=== PATIENT | female | born 1980 | race African-American/Black ===

== ENCOUNTER 2016-08-25 17:30 | Emergency (ER) | payer OTHER ==
[2016-08-25 17:36] VITALS: BMI 41.5
--- NOTE | 2016-08-25 17:37 | PDOC ---
Rapid Medical Evaluation Chief Complaint: Edema Time Seen by Provider: 08/25/16 17:33 Medical Evaluation: Allergies Allergy/AdvReac Type Severity Reaction Status Date / Time No Known Allergies Allergy Verified 08/25/16 17:32 08/25/16 17:33 I have performed a brief in-person evaluation of this patient. The patient presents with a chief complaint of: B/l lower extremity x 2 weeks. H /o asthma, obesity, s/p tubal ligation 3 years ago Pertinent physical exam findings: edema w/ ttp to b/l foot/ankle I have ordered the following:cbc/chem/ua The patient will proceed to the ED for further evaluation. 08/25/16 17:38 08/25/16 17:38
[2016-08-25 18:35] LABS: URINE APPEARANCE CLEAR; URINE BILIRUBIN NEGATIVE (NEGATIVE); URINE BLOOD NEGATIVE (NEGATIVE); URINE COLOR YELLOW; URINE GLUCOSE (UA) NEGATIVE (NEGATIVE); URINE KETONE TRACE (NEGATIVE); URINE LEUK ESTERASE NEGATIVE (NEGATIVE); URINE NITRITE NEGATIVE (NEGATIVE); URINE PROTEIN NEGATIVE (NEGATIVE); URINE UROBILINOGEN 2.0 E.U/dl E.U./dl (0.2-1.0)
[2016-08-25 19:00] LABS: ALBUMIN 3.1 g/dl (3.4-5.0); ALK PHOS 109 U/L (45-117); ANION GAP 6 (8-16); BILIRUBIN,TOTAL 0.4 mg/dL (0.2-1.0); CALCIUM 8.5 mg/dL (8.5-10.1); CO2 27 mmol/L (21-32); GLUCOSE,RANDOM 104 mg/dL (74-106); SGOT/AST 16 U/L (15-37); SGPT/ALT 16 U/L (12-78); TOT PROT 6.7 g/dl (6.4-8.2)
[2016-08-25 20:10] LABS: EOSINOPHIL 6.5 % (0-4.5); MCH 20.4 pg (25.7-33.7); MCHC 29.6 g/dl (32.0-36.0); MEAN PLT VOLUME 7.6 fl (7.5-11.1); NEUTROPHILS 39.5 % (42.8-82.8); PLATELET COUNT 407 K/MM3 (134-434); RDW 19.5 % (11.6-15.6); WHITE BLOOD COUNT 4.5 K/mm3 (4.0-10.0)
--- NOTE | 2016-08-25 21:45 | PDOC ---
History of Present Illness - General Chief Complaint: Edema Stated Complaint: SWOLLEN FEET Time Seen by Provider: 08/25/16 17:33 History Source: Patient Exam Limitations: No Limitations - History of Present Illness Initial Comments: 08/25/16 21:40 35yo Female patient w/ PmHx: Asthma presents to ED c/o bilateral feet swelling. Patient states she noticed symptoms after having her feet done. She thought it would go away, but symptoms worsened over a week. She reports numbness/tingling while lying in bed. Patient reports no hx: of foot swelling. She reports eating a lot of take out foods recently. She denies any other complaints at this time. LNMP: 1 week ago. Occurred: reports: other (2 weeks.) Severity: Yes: severe Method of Injury: No: unknown, assault, burn, direct blow, fell, incised, motor vehicle accident, sports injury, twisted, other Modifying Factors: worse with: None, cold therapy, immobilization, pain medication, rest, other Associated Symptoms: See HPI Lower Ext. Injury Location - Specific Injury Location Ankle: bilateral no evidence of injury, bilateral normal range of motion, bilateral swelling Foot: bilateral foot no evidence of injury, bilateral foot normal range of motion, bilateral foot swelling Past History - Travel Traveled outside of the country in the last 30 days: No Close contact w/someone who was outside of country & ill: No - Past Medical History Allergies/Adverse Reactions: Allergies Allergy/AdvReac Type Severity Reaction Status Date / Time No Known Allergies Allergy Verified 08/25/16 20:25 Home Medications: Ambulatory Orders Furosemide [Lasix] 20 mg PO DAILY PRN #20 tablet 08/25/16 Asthma: Yes (last attack >1yr) Cancer: No Cardiac Disorders: No Diabetes: No HTN: No Seizures: No Thyroid Disease: No - Surgical History Abdominal Surgery: Yes (GASTRIC BYPASS) - Immunization History Immunization Up to Date: Yes - Psycho/Social/Smoking Cessation Hx Anxiety: No Suicidal Ideation: No Smoking Status: No Smoking History: Never smoked Have you smoked in the past 12 months: No Number of Cigarettes Smoked Daily: 0 Information on smoking cessation initiated: No Hx Alcohol Use: No Drug/Substance Use Hx: No Substance Use Type: None Hx Substance Use Treatment: No Review of Systems - Review of Systems Able to Perform ROS?: Yes Is the patient limited Portuguese proficient: No Constitutional: No: Chills, Fever Musculoskeletal: No: Joint Pain, Joint Swelling, Joint Stiffness Integumentary: Yes: Other (Feet Swelling) All Other Systems: Reviewed and Negative *Physical Exam - Vital Signs Last Vital Signs Temp Pulse Resp BP Pulse Ox 97.9 F 90 18 121/45 100 08/25/16 17:33 08/25/16 17:33 08/25/16 17:33 08/25/16 17:33 08/25/16 19:40 - Physical Exam General Appearance: Yes: Nourished, Appropriately Dressed. No: Apparent Distress, Mild Distress, Moderate Distress, Severe Distress Neck: positive: Trachea midline, Normal Thyroid, Supple. negative: Tender, Rigid, Decreased range of motion, Stridor, Lymphadenopathy (R), Lymphadenopathy (L) Respiratory/Chest: positive: Lungs Clear, Normal Breath Sounds. negative: Chest Tender, Respiratory Distress, Accessory Muscle Use, Labored Respiration, Rapid RR Cardiovascular: positive: Regular Rhythm, Regular Rate Gastrointestinal/Abdominal: positive: Normal Bowel Sounds, Soft. negative: Tender, Distended, Guarding, Rebound, Tenderness Musculoskeletal: positive: Normal Inspection. negative: CVA Tenderness Extremity: positive: Normal Capillary Refill, Normal Range of Motion, Pedal Edema, Swelling. negative: Calf Tenderness, Erythema, Inflammation Integumentary: positive: Normal Color, Dry, Warm, Swelling. negative: Erythema , Moist, Hives, Rash Neurologic: positive: special needs babysitter II-XII NML intact, Fully Oriented, Alert, Normal Mood/ Affect, Normal Response, Motor Strength 5/5 ED Treatment Course - LABORATORY CBC & Chemistry Diagram: 08/25/16 18:00 08/25/16 18:00 - ADDITIONAL ORDERS Additional order review: Laboratory Results 08/25/16 08/25/16 08/25/16 18:00 18:00 18:00 Sodium 142 Potassium 4.1 Chloride 109 H Carbon Dioxide 27 Anion Gap 6 L BUN 12 D Creatinine 1.0 D Creat Clearance w eGFR > 60 Random Glucose 104 D Calcium 8.5 Total Bilirubin 0.4 D AST 16 D ALT 16 D Alkaline Phosphatase 109 D Total Protein 6.7 Albumin 3.1 L D Urine Color Yellow Urine Appearance Clear Urine pH 5.0 Urine Protein Negative Urine Glucose (UA) Negative Urine Ketones Trace H Urine Blood Negative Urine Nitrite Negative Urine Bilirubin Negative Urine Urobilinogen 2.0 e.u/dl H Ur Leukocyte Esterase Negative Urine HCG, Qual Negative 08/25/16 18:00 RBC 3.80 D MCV 69.0 L D MCHC 29.6 L RDW 19.5 H D MPV 7.6 Neutrophils % 39.5 L D Lymphocytes % 50.0 H D Monocytes % 4.0 Eosinophils % 6.5 H Basophils % 0.0 - RADIOLOGY Radiology Studies Ordered: Category Date Time Status DUPLEX VASCUL US-2LEGS [US] Stat Ultrasound 08/25/16 19:54 Completed *DC/Admit/Observation/Transfer Diagnosis at time of Disposition: Bilateral swelling of feet and ankles - Discharge Dispostion Disposition: HOME Condition at time of disposition: Stable Admit: No - Prescriptions Prescriptions: Furosemide [Lasix] 20 mg PO DAILY PRN #20 tablet PRN Reason: Swelling of feet - Patient Instructions Printed Discharge Instructions: DI for Peripheral Edema -- Bilateral Additional Instructions: FOLLOW UP WITH DR. RAPHAEL (PCP) FOR FURTHER EVALUATION. CALL TO SCHEDULE YOUR APPOINTMENT FOR LATER THIS WEEK OR EARLY NEXT WEEK. AVOID SALTY FOODS. INCREASE FLUIDS WHILE TAKING LASIX. ONLY TAKE LASIX IN MORNING AFTER AWAKING, YOU WILL BE USING BATHROOM FREQUENTLY. EAT 1-2 BANANAS DAILY. RETURN IF SYMPTOMS WORSEN OR ANY CONCERNS FOR FURTHER EVALUATION. ELEVATE LEGS WHILE RESTING TO LEVEL OF HEART. AVOID PROLONGED STANDING. Print Language: ROMANIAN - Post Discharge Activity Work/School Note: Back to Work
[2016-08-25 21:50] LABS: ANISOCYTOSIS 1+; HYPOCHROMIA 3+; MICROCYTOSIS 1+
[2016-08-25] MEDS ORDERED: FUROSEMIDE 20 MG TABLET (FP) PO ONE (22:06)
--- NOTE | 2016-08-25 22:21 | PDOC ---
*Physical Exam - Vital Signs Last Vital Signs Temp Pulse Resp BP Pulse Ox 97.9 F 90 18 121/45 100 08/25/16 17:33 08/25/16 17:33 08/25/16 17:33 08/25/16 17:33 08/25/16 19:40 ED Treatment Course - LABORATORY CBC & Chemistry Diagram: 08/25/16 18:00 08/25/16 18:00 - ADDITIONAL ORDERS Additional order review: Laboratory Results 08/25/16 08/25/16 08/25/16 18:00 18:00 18:00 Sodium 142 Potassium 4.1 Chloride 109 H Carbon Dioxide 27 Anion Gap 6 L BUN 12 D Creatinine 1.0 D Creat Clearance w eGFR > 60 Random Glucose 104 D Calcium 8.5 Total Bilirubin 0.4 D AST 16 D ALT 16 D Alkaline Phosphatase 109 D Total Protein 6.7 Albumin 3.1 L D Urine Color Yellow Urine Appearance Clear Urine pH 5.0 Urine Protein Negative Urine Glucose (UA) Negative Urine Ketones Trace H Urine Blood Negative Urine Nitrite Negative Urine Bilirubin Negative Urine Urobilinogen 2.0 e.u/dl H Ur Leukocyte Esterase Negative Urine HCG, Qual Negative 08/25/16 18:00 RBC 3.80 D MCV 69.0 L D MCHC 29.6 L RDW 19.5 H D MPV 7.6 Neutrophils % 39.5 L D Lymphocytes % 50.0 H D Monocytes % 4.0 Eosinophils % 6.5 H Basophils % 0.0 Medical Decision Making - Medical Decision Making 08/25/16 22:20 agree with care from CARLY Siu *DC/Admit/Observation/Transfer Diagnosis at time of Disposition: Bilateral swelling of feet and ankles - Prescriptions Prescriptions: Furosemide [Lasix] 20 mg PO DAILY PRN #20 tablet PRN Reason: Swelling of feet - Referrals Referrals: Leslie Isidro [Primary Care Provider] - - Patient Instructions Printed Discharge Instructions: DI for Peripheral Edema -- Bilateral Additional Instructions: FOLLOW UP WITH DR. ISIDRO (PCP) FOR FURTHER EVALUATION. CALL TO SCHEDULE YOUR APPOINTMENT FOR LATER THIS WEEK OR EARLY NEXT WEEK. AVOID SALTY FOODS. INCREASE FLUIDS WHILE TAKING LASIX. ONLY TAKE LASIX IN MORNING AFTER AWAKING, YOU WILL BE USING BATHROOM FREQUENTLY. EAT 1-2 BANANAS DAILY. RETURN IF SYMPTOMS WORSEN OR ANY CONCERNS FOR FURTHER EVALUATION. ELEVATE LEGS WHILE RESTING TO LEVEL OF HEART. AVOID PROLONGED STANDING. Print Language: MOHAWK - Post Discharge Activity Work/School Note: Back to Work
[2016-08-25] MEDS ORDERED: FUROSEMIDE 40 MG TABLET (FP) ONE (22:49)
[2016-08-25 22:58] VITALS: BP 124/53; PULSE 87; TEMP 98
== END 2016-08-25 22:58 | disposition home or self-care (01) ==
LOC: JER 17:30
DX: R60.0 Localized edema (principal)
CPT/HCPCS: 36415; 80053; 81003; 84703; 85025; 93970-TC; 99282-25

== ENCOUNTER 2019-11-09 04:46 | Day surgery (SDC) | payer OTHER ==
[2019-11-08 11:50] VITALS: BMI 45.1
[2019-11-09] MEDS ORDERED: CEFAZOLIN 2 GM/D5W 2 GM/50 ML ML IVPB ONE (07:00)
[2019-11-09] MEDS ORDERED: ceFAZolin SODIUM 1 GM VIAL ONE (08:24)
[2019-11-09 09:12] LABS: HEMATOCRIT 36.9 % (32.4-45.2); HEMOGLOBIN 12.1 GM/dL (10.7-15.3); MCH 28.9 pg (25.7-33.7); MCHC 32.7 g/dl (32.0-36.0); MEAN CELL VOLUME 88.4 fl (80-96); MEAN PLT VOLUME 8.4 fl (7.5-11.1); PLATELET COUNT 325 K/MM3 (134-434); RBC 4.17 M/mm3 (3.60-5.2); RDW 17.1 % (11.6-15.6); WHITE BLOOD COUNT 5.3 K/mm3 (4.0-10.0)
[2019-11-09 10:07] LABS: BILIRUBIN,TOTAL 0.4 mg/dL (0.2-1); BLOOD UREA NITROGEN 15.3 mg/dL (7-18); CALCIUM 8.6 mg/dL (8.5-10.1); CREATININE 0.9 mg/dL (0.55-1.3); POTASSIUM 3.7 mmol/L (3.5-5.1); TOT PROT 6.6 g/dl (6.4-8.2)
[2019-11-09] MEDS ORDERED: MIDAZOLAM HCL 2 MG/2 ML SINGLE DOSE VIAL ONE ×2 (10:29)
[2019-11-09] MEDS ORDERED: BUPIVACAINE LIPOSOME/PF (EXPAREL) 266 MG/20 ML VIAL ONE (10:33)
[2019-11-09] MEDS ORDERED: BUPIVACAINE HCL/PF 0.25% (2.5MG/ML) 10 ML VIAL ONE (10:34)
[2019-11-09] MEDS ORDERED: ROCURONIUM BROMIDE 50 MG/5 ML SYRINGE ONE ×2 (10:53→12:23)
[2019-11-09] MEDS ORDERED: fentaNYL CITRATE 250 MCG/5 ML VIAL ONE (10:53)
[2019-11-09] MEDS ORDERED: ceFAZolin SODIUM 1 GM VIAL IVPB ONE (11:40)
[2019-11-09] MEDS ORDERED: [UNRECOGNIZED DRUG - OTHER] NR ONE (11:50)
[2019-11-09] MEDS ORDERED: PROPOFOL 20 ML ONE (13:37)
[2019-11-09] MEDS ORDERED: NEOSTIGMINE METHYLSULFATE 0.5 MG/ML - 10 ML MDV ONE (14:28)
--- NOTE | 2019-11-09 15:05 | OP ---
<Niyah Smith - Last Filed: 11/09/19 15:01> Operative Note - Note: Operative Date: 11/09/19 Pre-Operative Diagnosis: dysmenorrhea Operation: robotic assisted hysterctomy with lysis of adhesion, right salpingectomy Surgeon: Carlitos Hugo Slab Polisher: Niyah Smith Anesthesiologist/DIE REPAIRER STAMPING: Ro Canales Anesthesia: General Specimens Removed: hysterctomy, right fallopian tube Estimated Blood Loss (mls): 50 Drains, Volume Out (mls): 400 (francois) Fluid Volume Replaced (mls): 2,000 Operative Report Dictated: Yes <Carlitos Hugo - Last Filed: 11/09/19 16:54> Operative Note - Note: Operation: cystoscopy
[2019-11-09] MEDS ORDERED: ONDANSETRON 4 MG/2 ML VIAL IVPUSH PRN (15:11)
[2019-11-09] MEDS ORDERED: SIMETHICONE 80 MG TAB.CHEW (FP) PO PRN (15:11)
[2019-11-09] MEDS ORDERED: oxyCODONE HCL 5 MG TABLET PO PRN (15:11)
[2019-11-09] MEDS ORDERED: DOCUSATE SODIUM 100 MG CAPSULE (FP) PO PRN (15:11)
--- NOTE | 2019-11-09 15:23 | SURG ---
Surgery Data Processing Control Clerk Note Data Processing Control Clerk: Niyah Smith PA-C Date of Service: 11/09/19 Diagnosis: dysmenorrhea Procedure: robotic assisted hysterectomy with lysis of adhesion, right salpingectomy I was present for the entirety of the operative procedure. For further detail, please refer to operative report. Visit type - Case Type Case Type: Scheduled - Emergency Emergency Visit: No - New patient This patient is new to me today: Yes Date on this admission: 11/09/19
[2019-11-09] MEDS: ACETAMINOPHEN 1000 MG/100 ML VIAL (NON FORMULARY) IVPB SCH (17:00)
[2019-11-09] MEDS ORDERED: ACETAMINOPHEN INJECTION 100 ML IVPB ONE (17:05)
[2019-11-09] MEDS: LACTATED RINGERS SOLUTION 1,000 ML/1,000 ML INFUS.BAG IV SCH (17:15)
[2019-11-09] MEDS ORDERED: LACTATED RINGERS SOLUTION 1,000 ML IV SCH (17:15)
[2019-11-09] MEDS: IBUPROFEN 800 MG/8 ML IJ IVPB SCH ×2 (18:58→22:14)
--- NOTE | 2019-11-09 19:12 | OP ---
DATE OF OPERATION: 11/09/2019 PREOPERATIVE DIAGNOSIS: 1. Enlarged uterus, possible uterine leiomyomata. 2. Severe pelvic pain, especially on the left side. 3. Menorrhagia with iron-deficiency anemia. ADDITIONAL DIAGNOSIS AND COMPLICATING FACTORS: 1. Morbid obesity. 2. Previous section x4 and bariatric surgery; expecting adhesions. POSTOPERATIVE DIAGNOSIS: 1. Enlarged uterus, possible uterine leiomyomata. 2. Severe pelvic pain, especially on the left side. 3. Menorrhagia with iron-deficiency anemia. 4. Morbid obesity. 5. Previous section x4 and bariatric surgery; expecting adhesions. OPERATION: 1. Total robotic hysterectomy with left salpingooophorectomy. 2. Lysis of extensive adhesions. 3. Division of left infundibulopelvic ligament. 4. Cystoscopy. SURGEON: Anita Melton MD. SALES DEVELOPMENT DIRECTOR: ENDER Horton. ANESTHESIA: General and TAP block. ANESTHESIOLOGIST: Ro Canales MD. PROCEDURE AND FINDINGS: The patient was placed on the operating table in dorsal supine position and general anesthesia was instituted. TAP block was given previously. Patient was prepped and draped in the normal fashion. Pelvic examination was carried out with great difficulties due to tightness of the vagina. Only with extra long speculum, cervix was visualized and brought somewhat down. It was dilated with difficulty and small VCare device was placed in the catheter. Bladder was catheterized with Ramirez catheter. Following abdominal prep and drape, patient was set up for Da Charly laparoscopy. Scars from bariatric surgery and from 4 C-sections were noted. Intraumbilical incision was made, and Veress needle was inserted vertically into the peritoneal cavity. Pneumoperitoneum was accomplished using 4-1/2 L of carbon dioxide. Da Charly trocar was then placed in the abdominal cavity with straight down vertical insertion. Scope was introduced and pelvis was examined. Under direct vision, two 8-mm lateral ports were placed and AirSeal 5-mm trocar was placed on the left side at the umbilical level in the midclavicular line. Patient was placed in steep Trendelenburg and robot was docked. Bipolar fenestrating device was placed in arm number 1, and Vessel Sealer in arm number 4. Arm number 3 was not used. Findings were as follows: Uterus was enlarged and irregular, compatible with 8 to 10 weeks of gestation. Right fallopian tube and right ovary were completely within normal limits with corpus luteum noticed on the ovary. Anterior adhesions between bladder and anterior uterine wall were thick, extensive, and cemented with scar tissue. They extended superiorly almost to the uterine fundus. Left ovary was buried with the adhesions and was attached to the posterior aspect of the uterus, left broad ligament and to each other. It was fixed in place with both solid and filmy adhesions. Initially, left ovary was not visualized. Left fallopian tube was noted to be distorted, damaged, and essentially nonexistent. Right-sided dissection was carried out. Right mesosalpinx was divided. Round ligament was opened, and right uteroovarian ligament was divided. Broad ligament was opened and bluntly dissected. Ureter was noted to be away from the operating field. Immediate to the right part of the bladder flap was opened, but at that point uterine vessel was skeletonized, coagulated, and divided. Subsequently, very thorough and painstaking division of scar tissue was carried out to free the bladder of the anterior uterus. It was carried out primarily by sharp dissection with bipolar coagulation employing Vessel Sealer. All adhesions were divided and anterior wall of the uterus was freed. Some of the uterine tissue may have stayed on the bladder, which is okay. After most of the scar tissue was divided, bladder was dissected off the cervix inferior to the rim of the thecal device. Urine was checked repeatedly during the dissection and remained clear. Left side was much more complicated. Left round ligament was opened, and pelvic sidewall was dissected. Bladder flap was connected. Most film adhesions were divided sharply without energy and most of the bladder loops were allowed to drop back free in the uterus. Ovary was completely embedded in the loop of colon and dissection was fraught with high risk of injury to the bowel. At that point, decision was made to separate the ovary from the uterus and address this issue after completing the hysterectomy. Further goal, uteroovarian ligament was isolated, and freed. It was divided and, as the next step, left uteroovarian ligament was divided as well. Loops of bowel were completely freed from the uterus. Left uterine plexus was noted, coagulated and divided. Loose tissue was cleared, and access to the VCare device rim was opened per 360 degrees. Vessel Sealer was removed from the abdomen and replaced with monopolar scissors. Vaginal fornix was entered anteriorly, and edge of rim was noted. Incision was carried all around for 360 degrees and uterus was freed. It was removed transvaginally with some difficulty but in 1 piece. Search for left ovary was carried out, but it was very difficult to address it. Because of very firm adhesions and scar tissue between ovary and intestine, decision was made not to pursue the goal of dissecting and removing it. Other than increased risk of bowel injury, there were 2 factors that influenced this decision. Firstly, patient pain in the left side will be relieved with complete dissection of the bowel and freeing the left side. Anatomy was restored and had no resemblance to the initial intraoperative findings. Secondly, with complete interruption of infundibulopelvic ligament and left uteroovarian ligament, the ovary will most likely atrophy and be reabsorbed. It is unlikely the patient will ever ovulate on the left side which in the past must have caused all this pain. Right ovary was completely within normal limits, left in place, and patient will have no interruption of overall function. After proper evaluation and arriving at this decision, pelvis was lavaged, and hemostasis was attended to. It was noted to be excellent. Megaholder was placed, replacing monopolar scissors, and 2-0 V-Loc was used to close the vaginal vault. It was closed with securing the angles with 1 continuous suture which was then returned for the 2nd layer of closure. Needle was removed from the abdomen. Another lavage was then carried out, and fluid was suctioned. The strip of Surgicel was placed in the raw area. At that point, robotic part of the surgery was completed. Robot was undocked. All ports and instruments were removed under direct vision, and carbon dioxide was suctioned from the abdomen using AirSeal system. Incisions were closed with interrupted 3-0 Biosyn sutures. Dressings were used employing Dermabond. Cystoscopy was then carried out to assess integrity of the ureters, especially the left one. Ramirez catheter was removed. Using suction irrigation device, blader was entered and filled with 200 mL of same. Laparoscope with 30-degree angle and 5-mm diameter was then introduced into the bladder. Trigone and bladder dome were noted to be completely intact. Urethra was normal as well. Both ureteral orifices were noted and jets of yellow urine were noted coming out freely from both of them. This was reassuring and cystoscopy was completed. Fresh Ramirez catheter was inserted into the bladder. Patient withstood the surgery well. In spite of multiple, rather significant surgical difficulties, procedure was accomplished without any complications. Blood loss was about 50 mL or less. There was no anesthesia complication, either. Patient withstood the procedure very well. She was awakened and transferred to PACU stable and comfortable. ANITA MELTON MD [id number] MTDD
[2019-11-09] MEDS: CEFAZOLIN 2 GM/D5W 2 GM/50 ML ML IVPB SCH (19:57)
[2019-11-09] MEDS ORDERED: CEFAZOLIN 2 GM in DEXTROSE 5%-WATER - 100 ML IVPB SCH (20:00)
[2019-11-10] MEDS: ACETAMINOPHEN 1000 MG/100 ML VIAL (NON FORMULARY) IVPB SCH ×2 (01:29→06:43)
[2019-11-10] MEDS: CEFAZOLIN 2 GM/D5W 2 GM/50 ML ML IVPB SCH (02:43)
[2019-11-10] MEDS: LACTATED RINGERS SOLUTION 1,000 ML/1,000 ML INFUS.BAG IV SCH (05:32)
[2019-11-10] MEDS ORDERED: ACETAMINOPHEN 325 MG TABLET (FP) PO PRN (07:59)
[2019-11-10] MEDS ORDERED: IBUPROFEN 400 MG TABLET (FP) PO PRN (08:00)
--- NOTE | 2019-11-10 08:08 | DS ---
Physical Exam: SUBJECTIVE: Patient seen and examined this am. She has no nasuea or emesis. No flatus or BM. Tolerated a regular diet. OOB and ambulated. Francois removed and voiding. Scant vaginal bleeding. OBJECTIVE: Vital Signs Temperature 98.6 F 11/10/19 06:00 Pulse Rate 75 11/10/19 06:00 Respiratory Rate 18 11/10/19 06:00 Blood Pressure 103/59 L 11/10/19 06:00 O2 Sat by Pulse Oximetry (%) 100 11/10/19 06:00 PHYSICAL EXAM GENERAL: The patient is awake, alert, and fully oriented, in no acute distress. ABDOMEN: Soft, nondistended, Inc tenderness. Inc c/d/i EXTREMITIES: no edema or swelling. No tenderness to LE b/l LABS CBC,CMP WBC 5.3 K/mm3 (4.0-10.0) 11/09/19 08:11 RBC 4.17 M/mm3 (3.60-5.2) 11/09/19 08:11 Hgb 12.1 GM/dL (10.7-15.3) 11/09/19 08:11 Hct 36.9 % (32.4-45.2) 11/09/19 08:11 MCV 88.4 fl (80-96) 11/09/19 08:11 MCH 28.9 pg (25.7-33.7) 11/09/19 08:11 MCHC 32.7 g/dl (32.0-36.0) 11/09/19 08:11 RDW 17.1 % (11.6-15.6) H 11/09/19 08:11 Plt Count 325 K/MM3 (134-434) 11/09/19 08:11 MPV 8.4 fl (7.5-11.1) 11/09/19 08:11 Sodium 143 mmol/L (136-145) 11/09/19 08:11 Potassium 3.7 mmol/L (3.5-5.1) 11/09/19 08:11 Chloride 110 mmol/L (98-107) H 11/09/19 08:11 Carbon Dioxide 27 mmol/L (21-32) 11/09/19 08:11 Anion Gap 6 MMOL/L (8-16) L 11/09/19 08:11 BUN 15.3 mg/dL (7-18) 11/09/19 08:11 Creatinine 0.9 mg/dL (0.55-1.3) 11/09/19 08:11 Est GFR (CKD-EPI)AfAm 92.70 11/09/19 08:11 Est GFR (CKD-EPI)NonAf 79.98 11/09/19 08:11 Random Glucose 90 mg/dL (74-106) 11/09/19 08:11 Calcium 8.6 mg/dL (8.5-10.1) 11/09/19 08:11 Total Bilirubin 0.4 mg/dL (0.2-1) 11/09/19 08:11 AST 13 U/L (15-37) L 11/09/19 08:11 ALT 16 U/L (13-61) 11/09/19 08:11 Alkaline Phosphatase 87 U/L (45-117) 11/09/19 08:11 Total Protein 6.6 g/dl (6.4-8.2) 11/09/19 08:11 Albumin 3.0 g/dl (3.4-5.0) L 11/09/19 08:11 Serum , Qual Negative 11/09/19 08:11 HOSPITAL COURSE: The patient was admitted to the Med-Surg Unit s/p robotic assisted abdominal hysterectomy. Pain management was achieved with a narcotic and non-narcotic oral and IV regimen. POD #1, the patients francois was removed and she voided. She tolerated a regular diet on the day of discharge. Hemoglobin and hematocrit were monitored as well as vitals and remained stable throughout admission. Anna-operative IV ABX were administered. DVT prophylaxis was achieved with Lovenox 40mg qd, SCDs and early ambulation. The patient ambulated the halls without issue. Narcotic scripts were checked with [place] [employer]RIVAL ATTENDANT prior to escribe. The discharge instructions and an oral pain management plan were reviewed with the patient. All questions answered. Above plan discussed with Dr. Dorado and agreed. Date of Admission:11/09/19 Date of Discharge: 11/10/19 Minutes to complete discharge: 30
[2019-11-10] MEDS ORDERED: CITRIC ACID/SODIUM CITRATE 30 ML UNIT-DOSE CUP PO ONE (08:41)
--- NOTE | 2019-11-10 08:43 | PN ---
Progress Note (short form) - Note Progress Note: VSS. Pt. is doing well. Raedy to go home. Passing gas. Some reflux. Bicitra. All [id number]. Discharge.
[2019-11-10 09:12] LABS: HEMATOCRIT 35.1 % (32.4-45.2); HEMOGLOBIN 11.3 GM/dL (10.7-15.3); MCH 28.6 pg (25.7-33.7); MCHC 32.1 g/dl (32.0-36.0); MEAN CELL VOLUME 89.1 fl (80-96); MEAN PLT VOLUME 8.3 fl (7.5-11.1); PLATELET COUNT 274 K/MM3 (134-434); RBC 3.94 M/mm3 (3.60-5.2); RDW 17.4 % (11.6-15.6); WHITE BLOOD COUNT 7.5 K/mm3 (4.0-10.0)
[2019-11-10 09:46] LABS: CALCIUM 8.8 mg/dL (8.5-10.1); POTASSIUM 4.1 mmol/L (3.5-5.1)
[2019-11-10 09:49] LABS: BLOOD UREA NITROGEN 10.4 mg/dL (7-18); CREATININE 0.7 mg/dL (0.55-1.3)
[2019-11-10] MEDS ORDERED: ENOXAPARIN NA (PORCINE) 40 MG/0.4 ML DISP.SYRIN SQ SCH (10:00)
[2019-11-10 14:24] VITALS: BP 140/70; PULSE 78; TEMP 98.8
--- NOTE | 2019-11-17 15:24 | PATH ---
Surgical Pathology Report Patient Name: RYLIE NEWMAN [facility]. Rec. #: [id number] /Age/Gender: 1980 (Age: 39) / F Account: [id number] Location: AMBULATORY SURG Taken: 11/09/2019 Received: 11/10/2019 Reported: 11/17/2019 Physicians: Carlitos Hugo MD Specimen(s) Received UTERUS, CERVIX, RIGHT FALLOPIAN TUBE Clinical History Dysmenorrhea Final Diagnosis UTERUS, CERVIX, RIGHT FALLOPIAN TUBE, ROBOTIC LAPAROSCOPIC HYSTERECTOMY AND RIGHT SALPINGECTOMY: 114 G UTERUS. CERVIX WITH LOW GRADE SQUAMOUS INTRAEPITHELIAL LESION (LSIL/CIN1). LEIOMYOMA(TA), SUBMUCOSAL AND INTRAMURAL. SECRETORY ENDOMETRIUM. MYOMETRIUM WITH ADENOMYOSIS. PREVIOUSLY LIGATED RIGHT FALLOPIAN TUBE WITH ENDOMETRIOSIS AND PARATUBAL CYSTS.SEE COMMENT. Comment: Immunohistochemical stains performed at [place], [place] ([id number], block 2) and interpreted at [facility] show P16 is negative. Ki-67 utilized to evaluate this case. Positive and negative controls (internal if applicable) show appropriate results. Electronically Signed Michelle Austin M.D. Gross Description Received in formalin labeled "uterus, cervix, right fallopian tube," is a 114 g uterus with an attached cervix and an attached right fallopian tube. The specimen measures 9.5 cm from superior to inferior, 5.7 cm from left to right and 5.0 cm from anterior to posterior. The serosa is kemp-stapleton with focal defects. The attached cervix measures 3.5 cm in length and averages 2 cm in diameter. The minimal attached ectocervix is kemp stapleton and smooth. The endocervix is unremarkable. The endometrial cavity measures 4.3 cm in length and 2.2 cm from cornu to cornu. The endometrium is red and lush, measuring up to 0.4 cm in thickness. The myometrium displays focal small intramural nodules, measuring up to 0.9 cm in greatest dimension. The cut surface of the nodules is kemp and rubbery with whorled architecture. No areas of hemorrhage or necrosis are identified. The remaining myometrium is kemp-pink and averages 2.2 cm in thickness. The attached right fimbriated fallopian tube measures 4.5 cm in length. The fallopian tube appears previously ligated. The outer surface is bagley purple and smooth. Sectioning reveals an unremarkable lumen. Alternative Energy Engineer sections are submitted in 18 cassettes as follows: 1-anterior cervix; 2-posterior cervix; 2-4-lklcpiox endomyometrium; 9-0-oinwoounz endomyometrium; 7-intramural nodules; 8-right fallopian tube fimbria; 9-cross sections the right fallopian tube. Additional cassettes are submitted as follows: 10-18- remainder of cervix entirely and sequentially submitted, clockwise, from 12:00. 11/10/201911/10/2019
== END 2019-11-10 15:13 | disposition home or self-care (01) ==
LOC: JASU-SURG 04:46 → JASUSAT 04:46 → EDSTATUS 12:30 → J6S 17:57 → JASUSAT 11-10 15:13
PROVIDERS: ATTEND Specialist
PROC: 8E0W4CZ Robotic Assisted Procedure of Trunk Region, Percutaneous Endoscopic Approach (ICD-10-PCS; 2019-11-09)
PROC: 0TJB8ZZ Inspection of Bladder, Via Natural or Artificial Opening Endoscopic (ICD-10-PCS; 2019-11-09)
PROC: 0UT94ZZ Resection of Uterus, Percutaneous Endoscopic Approach (ICD-10-PCS; principal; 2019-11-09 10:00)
DX: N85.2 Hypertrophy of uterus (principal); R10.2 Pelvic and perineal pain; N92.0 Excessive and frequent menstruation with regular cycle; D50.9 Iron deficiency anemia, unspecified; E66.01 Morbid (severe) obesity due to excess calories; Z68.42 Body mass index [BMI] 45.0-49.9, adult; Z98.84 Bariatric surgery status; Z87.59 Personal history of other complications of pregnancy, childbirth and the puerperium
CPT/HCPCS: 52000; 58571; S2900; 36415; 80048; 80053; 84703; 85027; 86850; 86900; 86901; 88307-TC; 94010; 94760; J0131

== ENCOUNTER 2020-11-20 09:34 | Emergency (ER) | payer OTHER ==
[2020-11-20 09:47] VITALS: BP 103/69; PULSE 71; TEMP 99.4; BMI 40.8
[2020-11-20] MEDS ORDERED: ACETAMINOPHEN 325 MG TABLET (FP) PO ONE (09:54)
== END 2020-11-20 10:34 | disposition home or self-care (01) ==
LOC: JER 09:34
DX: U07.1 COVID-19 (principal)
CPT/HCPCS: 99283-25; C9803; U0003; U0005

== ENCOUNTER 2020-11-22 10:07 | Emergency (ER) | payer OTHER ==
[2020-11-22 10:20] VITALS: TEMP 98.7; BMI 40.8
[2020-11-22] MEDS ORDERED: CASIRIVIMAB/IMDEVIMAB 10 ML in SODIUM CHLORIDE 100 ML IVPB ONE (10:27)
[2020-11-22 11:39] LABS: EOS % 0.5 % (0-4.5); HEMATOCRIT 35.6 % (32.4-45.2); HEMOGLOBIN 11.9 GM/dL (10.7-15.3); LYMPH % 43.6 % (8-40); MCH 29.9 pg (25.7-33.7); MCHC 33.4 g/dl (32.0-36.0); MEAN CELL VOLUME 89.7 fl (80-96); MONO % 9.4 % (3.8-10.2); NEUT % 45.5 % (42.8-82.8); PLATELET COUNT 217 10^3/uL (134-434); RBC 3.97 M/mm3 (3.60-5.2); RDW 15.2 % (11.6-15.6); WHITE BLOOD COUNT 2.6 K/mm3 (4.0-10.0)
[2020-11-22 11:53] LABS: ALBUMIN 2.9 g/dl (3.4-5.0); CALCIUM 8.2 mg/dL (8.5-10.1)
[2020-11-22 11:55] LABS: BLOOD UREA NITROGEN 9.4 mg/dL (7-18)
[2020-11-22 11:57] LABS: CREATININE 0.8 mg/dL (0.55-1.3)
[2020-11-22 11:58] LABS: BILIRUBIN,TOTAL 0.2 mg/dL (0.2-1); TOT PROT 6.6 g/dl (6.4-8.2)
[2020-11-22 12:49] VITALS: BP 111/70; PULSE 62
== END 2020-11-22 13:22 | disposition home or self-care (01) ==
LOC: JER 10:07
DX: U07.1 COVID-19 (principal)
CPT/HCPCS: 36415; 80053; 85025; 99284-25; Q0240

== ENCOUNTER 2021-09-25 00:10 | Emergency (ER) | payer OTHER ==
[2021-09-25 01:05] VITALS: BP 115/62; PULSE 89; TEMP 99.1; BMI 34.7
[2021-09-25 02:45] LABS: URINE APPEARANCE CLEAR; URINE BILIRUBIN NEGATIVE (NEGATIVE); URINE COLOR YELLOW; URINE GLUCOSE (UA) NEGATIVE (NEGATIVE); URINE KETONE TRACE (NEGATIVE); URINE LEUK ESTERASE NEGATIVE (NEGATIVE); URINE NITRITE NEGATIVE (NEGATIVE); URINE PROTEIN NEGATIVE (NEGATIVE)
[2021-09-25] MEDS ORDERED: ALBUTEROL SO4 HFA INHALER IH ONE ×2 (04:15)
== END 2021-09-25 04:21 | disposition home or self-care (01) ==
LOC: JER 00:10
PROC: 3E0F7GC Introduction of Other Therapeutic Substance into Respiratory Tract, Via Natural or Artificial Opening (ICD-10-PCS; principal; 2021-09-25)
DX: J04.0 Acute laryngitis (principal)
CPT/HCPCS: 0241U-QW; 81003; 87086; 87186; 99283-25

== ENCOUNTER 2023-03-06 21:42 | Emergency (ER) | payer OTHER ==
[2023-03-06 22:01] VITALS: RESP 18; BMI 45.1
[2023-03-07] MEDS ORDERED: ACETAMINOPHEN 325 MG TABLET (FP) PO ONE (00:20)
[2023-03-07] MEDS ORDERED: ACETAMINOPHEN 325 MG TABLET (FP) ONE (00:50)
[2023-03-07 01:14] LABS: EOS % 1.9 % (0-4.5); HEMOGLOBIN 13.7 GM/dL (10.7-15.3); LYMPH % 23.7 % (8-40); MCH 29.4 pg (25.7-33.7); MCHC 32.7 g/dl (32.0-36.0); MEAN CELL VOLUME 90.2 fl (80-96); MEAN PLT VOLUME 7.8 fl (7.5-11.1); MONO % 4.3 % (3.8-10.2); NEUT % 69.1 % (42.8-82.8); PLATELET COUNT 338 10^3/uL (134-434); RBC 4.66 M/mm3 (3.60-5.2); RDW 14.4 % (11.6-15.6); WHITE BLOOD COUNT 6.4 K/mm3 (4.0-10.0)
[2023-03-07 01:17] LABS: EPI CELLS 20 /uL (0-25.1); HYALINE CASTS 3 /uL (0-3.1); PH,URINE 5.5 (5.0-8.0); URINE APPEARANCE CLOUDY; URINE BACTERIA >9,000 /uL (0-1359); URINE BILIRUBIN NEGATIVE (NEGATIVE); URINE COLOR DK YELLOW; URINE GLUCOSE (UA) NEGATIVE (NEGATIVE); URINE KETONE 1+ (NEGATIVE); URINE LEUK ESTERASE TRACE (NEGATIVE); URINE NITRITE POSITIVE (NEGATIVE); URINE PROTEIN TRACE (NEGATIVE); URINE WBC 73 /uL (0-25.8)
[2023-03-07] MEDS ORDERED: CEFTRIAXONE 1 GM in DEXTROSE 5%-WATER - 50 ML IVPB ONE (01:23)
[2023-03-07 01:27] LABS: POTASSIUM 4.2 mmol/L (3.5-5.1)
[2023-03-07 01:29] LABS: ALBUMIN 3.3 g/dl (3.4-5.0); BLOOD UREA NITROGEN 15.7 mg/dL (7-18); CALCIUM 8.9 mg/dL (8.5-10.1)
[2023-03-07 01:33] LABS: CREATININE 0.9 mg/dL (0.55-1.3)
[2023-03-07 01:34] LABS: BILIRUBIN,TOTAL 0.5 mg/dL (0.2-1)
[2023-03-07] MEDS ORDERED: NITROFURANTOIN MONOHYD/M-CRYST 100 MG CAPSULE PO ONE (01:36)
[2023-03-07] MEDS ORDERED: NITROFURANTOIN MACROCRYSTAL 50 MG CAPSULE (FP) ONE (01:48)
[2023-03-07 02:47] VITALS: BP 118/73; PULSE 83; TEMP 98.4
[2023-03-07 07:56] LABS: URINE RBC 30.2 /uL (0-23.9)
== END 2023-03-07 02:47 | disposition home or self-care (01) ==
LOC: JER 21:42
DX: R42 Dizziness and giddiness (principal); R10.32 Left lower quadrant pain; N39.0 Urinary tract infection, site not specified; Z20.822 Contact with and (suspected) exposure to COVID-19
CPT/HCPCS: 0241U-QW; 36415; 80053; 81003; 84703; 85025; 87086; 87186; 93005; 93010; 99284-25

== ENCOUNTER 2023-10-01 18:46 | Emergency (ER) | payer OTHER ==
[2023-10-01 18:52] VITALS: RESP 18; TEMP 98.4; BMI 46.5
[2023-10-01] MEDS: SODIUM CHLORIDE 0.9% 500 ML INFUS.BAG IV ONE (20:29)
[2023-10-01] MEDS: ACETAMINOPHEN 1000 MG/100 ML BAG IVPB ONE (20:30)
[2023-10-01] MEDS ORDERED: ACETAMINOPHEN INJECTION 100 ML IVPB ONE (20:34)
[2023-10-01 20:37] LABS: BASO % 2.4 % (0-2.0); EOS % 5.9 % (0-4.5); HEMATOCRIT 38.5 % (32.4-45.2); LYMPH % 36.2 % (8-40); MCH 30.6 pg (25.7-33.7); MCHC 33.7 g/dl (32.0-36.0); MEAN CELL VOLUME 90.9 fl (80-96); MEAN PLT VOLUME 8.1 fl (7.5-11.1); MONO % 5.4 % (3.8-10.2); NEUT % 50.1 % (42.8-82.8); PLATELET COUNT 299 10^3/uL (134-434); RBC 4.23 M/mm3 (3.60-5.2); RDW 14.2 % (11.6-15.6); WHITE BLOOD COUNT 4.3 K/mm3 (4.0-10.0)
[2023-10-01 20:40] LABS: EPI CELLS 31 /uL (0-25.1); HYALINE CASTS 2 /uL (0-3.1); PH,URINE 5.5 (5.0-8.0); URINE APPEARANCE CLEAR; URINE BACTERIA >9,000 /uL (0-1359); URINE BILIRUBIN NEGATIVE (NEGATIVE); URINE COLOR DK YELLOW; URINE GLUCOSE (UA) NEGATIVE (NEGATIVE); URINE KETONE TRACE (NEGATIVE); URINE LEUK ESTERASE TRACE (NEGATIVE); URINE NITRITE POSITIVE (NEGATIVE); URINE PROTEIN TRACE (NEGATIVE); URINE WBC 39 /uL (0-25.8)
[2023-10-01 20:54] LABS: POTASSIUM 3.8 mmol/L (3.5-5.1)
[2023-10-01 20:56] LABS: CALCIUM 8.5 mg/dL (8.5-10.1)
[2023-10-01 20:57] LABS: ALBUMIN 3.2 g/dl (3.4-5.0); BLOOD UREA NITROGEN 12.6 mg/dL (7-18)
[2023-10-01 21:02] LABS: BILIRUBIN,TOTAL 0.8 mg/dL (0.2-1); TOT PROT 6.8 g/dl (6.4-8.2)
[2023-10-01 21:24] LABS: URINE RBC 92.8 /uL (0-23.9)
[2023-10-01 22:13] VITALS: BP 126/65; PULSE 53
[2023-10-01] MEDS ORDERED: CEFTRIAXONE 1 GM/50 ML BAG ONE (22:37)
[2023-10-01] MEDS ORDERED: METOCLOPRAMIDE HCL INJECTION 10 MG/2 ML VIAL ONE (22:37)
[2023-10-01] MEDS: METOCLOPRAMIDE HCL INJECTION 10 MG/2 ML VIAL IVPUSH ONE (22:44)
== END 2023-10-02 00:13 | disposition home or self-care (01) ==
LOC: JER 18:46
PROC: 3E033GC Introduction of Other Therapeutic Substance into Peripheral Vein, Percutaneous Approach (ICD-10-PCS; principal; 2023-10-01)
PROC: 3E03329 Introduction of Other Anti-infective into Peripheral Vein, Percutaneous Approach (ICD-10-PCS; 2023-10-01)
PROC: 3E033NZ Introduction of Analgesics, Hypnotics, Sedatives into Peripheral Vein, Percutaneous Approach (ICD-10-PCS; 2023-10-01)
DX: R42 Dizziness and giddiness (principal); R10.32 Left lower quadrant pain; R50.9 Fever, unspecified; N39.0 Urinary tract infection, site not specified
CPT/HCPCS: 36415; 80053; 81003; 85025; 99284-25; J0131